=== PATIENT | female | born 1950 | race Caucasian/White ===

== ENCOUNTER 2021-12-10 19:52 | Emergency (ER) | payer MEDICARE, SELFPAY ==
--- NOTE | ~2021-12-10 | XR_ITS ---
EXAMINATION: XR CHEST CLINICAL INFORMATION: Weakness. COMPARISON: Chest x-ray 12/10/2021 TECHNIQUE: Frontal portable view of the chest was obtained. 8:36 PM FINDINGS: Low lung volume with asymmetric elevation of left diaphragm. Linear atelectasis at left lung base. Right lung normally aerated. No pulmonary vascular congestion. Cardiac mediastinal contours are normal. Heart size is normal. Multilevel degenerative spondylosis spine. Marked degenerative change of the left glenohumeral joint. Chronic deformity of the proximal left humerus likely related to prior trauma. XR/XR chest 1V IMPRESSION: Asymmetric elevation of left diaphragm with left basilar atelectasis. Low lung volume.
[2021-12-10 19:57] VITALS: BP 81/53; BP 85/37; PULSE 74; PULSE 78; RESP 18; TEMP 36.8; O2SAT 100; O2SAT 95; BMI 30.2
--- NOTE | 2021-12-10 20:12 | PC.NURSE ---
POC 273
--- NOTE | 2021-12-10 20:21 | ECG_ITS ---
Test Reason : WEAKNESS Blood Pressure : / mmHG Vent. Rate : 073 BPM Atrial Rate : 073 BPM P-R Int : 146 ms QRS Dur : 102 ms QT Int : 426 ms P-R-T Axes : 043 027 162 degrees QTc Int : 469 ms Normal sinus rhythm Minimal voltage criteria for LVH, may be normal variant ( Pete product ) Cannot rule out Inferior infarct , age undetermined ST & T wave abnormality, consider lateral ischemia Abnormal ECG When compared with ECG of 18-APR-2017 11:19, Non-specific change in ST segment in Inferior leads Nonspecific T wave abnormality now evident in Inferior leads T wave inversion now evident in Anterolateral leads Referred By: Cuauhtemoc Clancy Electronically Signed By:JOHN AVALOS MD
--- NOTE | 2021-12-10 20:29 | ED_ITS ---
HPI - Weakness General Chief complaint: Weakness Stated complaint: hyperglycemia Time Seen by Provider: 12/10/21 20:19 Source: patient Mode of arrival: EMS Limitations: no limitations History of Present Illness HPI Narrative: 71-year-old patient who has a history of CKD stage IV with creatinine 1.6-2.2 and recurrent hyperkalemia followed by Dr. Lan as well as underlying type 2 diabetes, COPD on home oxygen, recent NSTEMI in 08/20 with three-vessel CAD by cath?stenting to LAD and RCA x2, HFpEF, chronic anemia, depression, gout, obesity, hypertension, and hyperlipidemia came to the ER for feeling very weak for last 2-3 days with poor in oral intake complaining of running nose body aches headaches darker urine blood pressure on arrival was 85/37 received 600 cc of bolus by EMS blood sugar was about 260 patient id any abdominal pain no nausea no vomiting no fever no chills no cough or significant shortness of breath Patient frequently goes to [facility] was admitted on 11/21 and again on 11/29 discharged on 12/02 with CHF and weakness and hyperglycemia Related Data Allergies Allergy/AdvReac Type Severity Reaction Status Date / Time drospirenone [Vestura (28)] Allergy Unknown Verified 05/29/16 00:00 ethinyl estradiol Allergy Unknown Verified 05/29/16 00:00 [Vestura (28)] lisinopril [From ZESTRIL] Allergy Unknown THROAT Unverified 03/15/20 14:47 ITCHING Review of Systems Review of Systems: Yes all other systems are reviewed and are negative [facility] Social History Social History Advance Directives: No Advance Directives Information Provided: No Physical Exam Vital Signs: Vital Signs: Last Vital Signs Temp 98.1 F 12/10/21 21:59 Pulse 73 12/10/21 21:59 Resp 16 12/10/21 21:59 BP 98/45 L 12/10/21 21:59 Pulse Ox 99 12/10/21 21:59 O2 Del Method 12/10/21 21:59 O2 Flow Rate 94 12/10/21 21:59 Oxygen Flow Rate 3 12/10/21 19:57 BMI result Body Mass Index 30.2 Appearance: Alert. Oriented X3. No acute distress. Eyes: PERRLA, No Nystagmus ENT: Pharynx normal. Oral Mucosa dry Neck: Normal inspection. Neck supple. CVS: Normal heart rate and rhythm. Pulses normal. Respiratory: No respiratory distress. Equal air entry bilateral, no wheezing/rales/rhonchi Abdomen: Soft and nontender. Bowel sounds are present, no mass palpable, no CVA tenderness Skin: Skin warm and dry. Normal skin color. Normal skin turgor. Extremities: No lower extremity edema. No calf tenderness Neuro: Oriented X 3. No motor deficit. No sensory deficit.No cerebellar signs , cranial nerves II-XII intact MDM - Weakness MDM Narrative Medical decision making narrative: 71-year-old patient who has a history of CKD stage IV with creatinine 1.6-2.2 and recurrent hyperkalemia followed by Dr. Lan as well as underlying type 2 diabetes, COPD on home oxygen, recent NSTEMI in 08/20 with three-vessel CAD by cath?stenting to LAD and RCA x2, HFpEF, chronic anemia, depression, gout, obesity, hypertension, and hyperlipidemia came here for nonspecific weakness noticed to have blood sugar of 273 labs are stable will discharge patient home advised to follow with PCP patient received 2 L of IV fluid Medical Records Attestation: I reviewed the patient's medical records. Medical records narrative: Medical records reviewed from [facility] patient BUN creatinine was 48/2.9 on 12/02 and is in the same range in the past Lab Data Attestation: I reviewed the patient's lab results. Result diagrams: 12/10/21 20:33 12/10/21 20:33 Labs: Lab Results 12/10/21 12/10/21 12/10/21 Range/Units 20:12 20:33 20:33 WBC 8.8 (4.8-10.8) X10*3/uL RBC 3.38 L (4.20-5.50) X10*6/uL Hgb 9.5 L (12.0-16.0) g/dl Hct 29.3 L (37.0-47.0) % MCV 86.7 (80.0-98.0) fL MCH 28.1 (27.0-33.0) pg MCHC 32.4 (31.0-35.0) g/dl RDW 17.3 H (11.0-16.0) % Plt Count 152 L (160-400) X10*3/uL MPV 10.3 (9.4-12.3) fL Immature Gran % (Auto) 0.3 (0.0-0.4) % Neut % (Auto) 57.8 (45-73) % Lymph % (Auto) 31.8 (20-40) % Bertie % (Auto) 8.3 (2-11) % Eos % (Auto) 1.5 (0-4) % Baso % (Auto) 0.3 (0-2) % Lymph # (Auto) 2.8 (1.2-4.9) X10*3/uL Bertie # (Auto) 0.7 (0.1-1.2) X10*3/uL Eos # (Auto) 0.1 (0.0-0.4) X10*3/uL Baso # (Auto) 0.0 (0.0-0.2) X10*3/uL Abs Immat Gran (auto) 0.03 (0.00-0.03) X10*3/uL Absolute Neuts (auto) 5.1 (2.0-8.3) x10*3/uL Absolute Nucleated RBC 0.000 (0.0-0.012) X10*3/uL Nucleated RBC % (auto) 0.0 (0.0-0.2) /100WBC Sodium (135-145) mmol/L Potassium (3.3-5.1) mmol/L Chloride (96-108) mmol/L Carbon Dioxide (22-29) mmol/L Anion Gap (12-20) BUN (9-16) mg/dL Creatinine (0.5-1.4) mg/dL Estim Creat Clear Calc Estimated GFR POC Glucose 273 H (60-115) mg/dL Random Glucose (60-115) mg/dL Calcium (8.4-10.2) mg/dL Total Bilirubin (0.0-1.0) mg/dL AST (5-31) U/L ALT (0-31) U/L Alkaline Phosphatase (39-117) U/L Total Protein (6.5-8.0) g/dL Albumin (3.5-5.0) g/dL COVID-19 (BRODERICK) Negative (Negative) COVID-19 Clin Com See Note Influenza Type A (EDILSON) (Negative) Influenza Type B (EDILSON) (Negative) Influenza A & B Note 12/10/21 12/10/21 Range/Units 20:33 20:33 WBC (4.8-10.8) X10*3/uL RBC (4.20-5.50) X10*6/uL Hgb (12.0-16.0) g/dl Hct (37.0-47.0) % MCV (80.0-98.0) fL MCH (27.0-33.0) pg MCHC (31.0-35.0) g/dl RDW (11.0-16.0) % Plt Count (160-400) X10*3/uL MPV (9.4-12.3) fL Immature Gran % (Auto) (0.0-0.4) % Neut % (Auto) (45-73) % Lymph % (Auto) (20-40) % Bertie % (Auto) (2-11) % Eos % (Auto) (0-4) % Baso % (Auto) (0-2) % Lymph # (Auto) (1.2-4.9) X10*3/uL Bertie # (Auto) (0.1-1.2) X10*3/uL Eos # (Auto) (0.0-0.4) X10*3/uL Baso # (Auto) (0.0-0.2) X10*3/uL Abs Immat Gran (auto) (0.00-0.03) X10*3/uL Absolute Neuts (auto) (2.0-8.3) x10*3/uL Absolute Nucleated RBC (0.0-0.012) X10*3/uL Nucleated RBC % (auto) (0.0-0.2) /100WBC Sodium 136 (135-145) mmol/L Potassium 3.7 (3.3-5.1) mmol/L Chloride 107 (96-108) mmol/L Carbon Dioxide 21 L (22-29) mmol/L Anion Gap 12 (12-20) BUN 48 H (9-16) mg/dL Creatinine 2.32 H (0.5-1.4) mg/dL Estim Creat Clear Calc 20.4 Estimated GFR 21 POC Glucose (60-115) mg/dL Random Glucose 307 H (60-115) mg/dL Calcium 8.1 L (8.4-10.2) mg/dL Total Bilirubin 0.2 (0.0-1.0) mg/dL AST 10 (5-31) U/L ALT 7 (0-31) U/L Alkaline Phosphatase 64 (39-117) U/L Total Protein 4.7 L (6.5-8.0) g/dL Albumin 2.7 L (3.5-5.0) g/dL COVID-19 (BRODERICK) (Negative) COVID-19 Clin Com Influenza Type A (EDILSON) Negative (Negative) Influenza Type B (EDILSON) Negative (Negative) Influenza A & B Note See Note Discharge Plan Discharge Clinical Impression: Weakness, Chronic kidney failure, Hyperglycemia due to diabetes mellitus Patient Disposition: Home, Self-Care Instructions: Chronic Kidney Disease (ED), Weakness (ED), Diabetic Hyperglyc emia (ED) Additional Instructions: Drink plenty of fluids Take her insulin on time as prescribed follow with PCP
[2021-12-10 20:38] LABS: MANUAL DIFF FLAG NO
[2021-12-10 20:39] LABS: Basophils Percent Auto 0.3 % (0-2); Eosinophils Absolute Auto 0.1 X10*3/uL (0.0-0.4); Eosinophils Percent Auto 1.5 % (0-4); Hematocrit 29.3 % (37.0-47.0); Hemoglobin 9.5 g/dl (12.0-16.0); Imm Gran Abs Auto 0.03 X10*3/uL (0.00-0.03); Imm Gran Pct Auto 0.3 % (0.0-0.4); Lymphocytes Absolute Auto 2.8 X10*3/uL (1.2-4.9); Lymphocytes Percent Auto 31.8 % (20-40); Mean Corpuscular HGB Conc 32.4 g/dl (31.0-35.0); Mean Corpuscular Hemoglobin 28.1 pg (27.0-33.0); Mean Corpuscular Volume 86.7 fL (80.0-98.0); Mean Platelet Volume 10.3 fL (9.4-12.3); Monocytes Absolute Auto 0.7 X10*3/uL (0.1-1.2); Monocytes Percent Auto 8.3 % (2-11); Neutrophils Absolute Auto 5.1 x10*3/uL (2.0-8.3); Neutrophils Percent Auto 57.8 % (45-73); Platelet Count 152 X10*3/uL (160-400); Red Blood Count 3.38 X10*6/uL (4.20-5.50); Red Cell Distribution Width 17.3 % (11.0-16.0); White Blood Count 8.8 X10*3/uL (4.8-10.8)
[2021-12-10 20:57] LABS: COVID-19 Test Negative (Negative); IDNOW Serial# 16C4AD1C; IDNOW Serial# 55D5AD1C; Influenza A Negative (Negative); Influenza B2 Negative (Negative)
[2021-12-10 20:59] LABS: Alanine Aminotransferase 7 U/L (0-31); Albumin Level 2.7 g/dL (3.5-5.0); Alkaline Phosphatase 64 U/L (39-117); Anion Gap 12 (12-20); Aspartate Amino Transferase 10 U/L (5-31); Bilirubin Total 0.2 mg/dL (0.0-1.0); Blood Urea Nitrogen 48 mg/dL (9-16); Calcium 8.1 mg/dL (8.4-10.2); Carbon Dioxide 21 mmol/L (22-29); Chloride 107 mmol/L (96-108); Creatinine Clr Calc Pharmacy 20.4; Estimated Glomerular Filt Rate 21; Glucose Random 307 mg/dL (60-115); Potassium 3.7 mmol/L (3.3-5.1); Sodium 136 mmol/L (135-145); Total Protein 4.7 g/dL (6.5-8.0)
[2021-12-10 21:59] VITALS: BP 98/45; PULSE 73; RESP 16; TEMP 36.7; O2SAT 99
[2021-12-10] MEDS: 0.9 % Sodium Chloride 1,000 ML 999 ML IV ×2 (22:03→22:04)
[2021-12-10 22:07] LABS: Glucose, Whole Blood 273 mg/dL (60-115)
[2021-12-11] MEDS: Insulin Glargine,Hum.rec.anlog 100 UNIT/ML 10 ML VIAL 15 UNIT SUBCUT (01:14)
== END 2021-12-11 01:35 | disposition home or self-care (01) ==
PROVIDERS: Emergency Provider Internal Medicine; PCP Internal Medicine
DX: R53.1 Weakness (principal); E11.65 Type 2 diabetes mellitus with hyperglycemia; E11.22 Type 2 diabetes mellitus with diabetic chronic kidney disease; I13.0 Hypertensive heart and chronic kidney disease with heart failure and stage 1 through stage 4 chronic kidney disease, or unspecified chronic kidney disease; N18.4 Chronic kidney disease, stage 4 (severe); I50.9 Heart failure, unspecified; Z20.822 Contact with and (suspected) exposure to COVID-19; J44.9 Chronic obstructive pulmonary disease, unspecified; Z99.81 Dependence on supplemental oxygen; E78.5 Hyperlipidemia, unspecified
CPT/HCPCS: 71045; 80053; 82947; 85025; 87502; 87635; 93005; 96360; 96361; 99283; 99284

== ENCOUNTER 2022-03-19 19:47 | Emergency (ER) | payer MEDICARE, SELFPAY ==
--- NOTE | ~2022-03-19 | XR_ITS ---
EXAMINATION: XR CHEST CLINICAL INFORMATION: Shortness of breath COMPARISON: 12/10/2021 TECHNIQUE: Frontal view of the chest was obtained. FINDINGS: Elevated left hemidiaphragm. There are bilateral airspace opacities with perihilar distribution. No pleural effusion or pneumothorax. The cardiomediastinal silhouette is unchanged, with a calcified aorta. Degenerative changes at the left shoulder with chronic humeral deformity noted. XR/XR chest 1V IMPRESSION: Bilateral perihilar airspace opacities. Considerations include edema versus infectious/inflammatory process.
--- NOTE | ~2022-03-19 | CT_ITS ---
EXAMINATION: CT ABDOMEN AND PELVIS WITHOUT CONTRAST CLINICAL INFORMATION: Abdominal pain COMPARISON: CT abdomen pelvis 09/15/2015 TECHNIQUE: Multidetector volumetric imaging was performed from the superior aspect of the liver through the pubic symphysis. Sagittal and coronal reformatted images were obtained on the technologist's workstation. This CT examination was performed using dose optimization techniques as appropriate, variously including the following: *Automated exposure control *Adjustment of mA and/or kV according to patient size (this includes techniques or standardized protocols for targeted exams where dose is matched to indication/reason for exam; i.e. extremities or head) *Use of iterative reconstruction technique DLP: 647 mGy-cm FINDINGS: LUNG BASES: New left lower lobe atelectasis/consolidation is present. There is new elevation of the left hemidiaphragm LIVER, GALLBLADDER, AND BILIARY TREE: The liver is normal in size, shape, and attenuation. In 2016, hepatic steatosis was present which is no longer noted. No focal hepatic lesion or biliary ductal dilatation is present. There are dependent calcifications in the gallbladder consistent with calculi. There is one nondependent calcification which could be a small area of calcification. No obvious pericholecystic inflammatory changes. PANCREAS: Unremarkable. SPLEEN: Unremarkable. ADRENAL GLANDS: Unremarkable. KIDNEYS AND URETERS: The kidneys are normal in size, shape, and attenuation. No hydronephrosis, hydroureter, or calculi seen. Calcifications present in the kidney are felt to be renovascular. No perinephric stranding. BLADDER: Unremarkable. GASTROINTESTINAL TRACT: Diverticular changes are present in the left colon without diverticulitis. The small and large bowel are otherwise unremarkable. The appendix is unremarkable. ABDOMINAL WALL: No significant hernia is appreciated. LYMPH NODES: No retroperitoneal lymphadenopathy. VASCULAR: Marked aortoiliofemoral calcifications are seen with significant peripheral vascular disease present PELVIC VISCERA: Unremarkable. OSSEOUS STRUCTURES: Scoliosis is present along with degenerative changes throughout the spine. CT/CT abdomen pelvis wo IV con IMPRESSION: * New left lower lobe atelectasis/consolidation. * Cholelithiasis without evidence of cholecystitis along with one area of nondependent calcification. * Colonic diverticulosis without diverticulitis. * Significant peripheral vascular disease most likely present Fleischner guidelines were followed.
--- NOTE | ~2022-03-19 | CT_ITS ---
EXAMINATION: CT head/brain wo IV con CLINICAL INFORMATION: Reason for Exam LLQ pain - HIGH BP, NAUSEA COMPARISON: CT head without contrast 04/18/2017 TECHNIQUE: Contiguous axial imaging was performed from the skull base to vertex without intravenous contrast. Sagittal and coronal reformatted images were obtained. This CT examination was performed using dose optimization techniques as appropriate, variously including the following: * Automated exposure control * Adjustment of mA and/or kV according to patient size (this includes techniques or standardized protocols for targeted exams where dose is matched to indication/reason for exam; i.e. extremities or head) Use of iterative reconstruction technique DLP: 623 mGy-cm FINDINGS: No acute osseous or soft tissue abnormality. Small left frontal calvarial outer table osteoma. Scattered trace paranasal sinus mucosal thickening. The mastoids are clear. There is no evidence of acute intracranial hemorrhage or territorial infarction. No abnormal mass effect or midline shift is seen. Ritter to white matter differentiation is well preserved. No extra-axial fluid collections are identified. No hydrocephalus. Proportional prominence of the ventricles and sulcal spaces is consistent with mild volume loss. There is no abnormal attenuation within the brain parenchyma. CT/CT head/brain wo IV con IMPRESSION: No acute intracranial abnormality including hemorrhage, mass effect, hydrocephalus, or acute territorial edematous infarction.
[2022-03-19 20:04] VITALS: BP 130/80; PULSE 91; RESP 16; O2SAT 95; BMI 30.2
[2022-03-19 20:36] LABS: MANUAL DIFF FLAG NO
--- NOTE | 2022-03-19 20:38 | ED_ITS ---
HPI - Abdominal Pain General Chief Complaint: Abdominal Pain Stated Complaint: abdominal pain Time Seen by Provider: 03/19/22 20:07 Source: patient and EMS Mode of arrival: EMS Limitations: other (patient slow to respond to questions and poor historian ) History of Present Illness HPI narrative: 72-year-old female who presents with upper abdominal pain x1 week. The patient reports that she has been having epigastric pain and nausea for the past week. She has also been eating less secondary to the pain but has been able to tolerate food and water. She tells me that she has also been constipated for the past month. She reports that she has been able to move her bowels but less frequently than normal. She denies any fevers, chills, vomiting, headache, dizziness, chest pain, or shortness of breath. Of note, triage note states patient had been diverticulitis at [facility] recently, patient denies this upon being asked, however, patient is somewhat of a poor historian. Related Data Previous Rx's Medication Instructions Recorded azithromycin 250 mg tablet See Rx Instructions PO .COMPLEX #6 03/20/22 tabs docusate sodium 100 mg capsule 100 mg PO BID #20 caps 03/20/22 (Colace) sennosides 8.6 mg tablet (senna) 8.6 mg PO BEDTIME #14 tabs 03/20/22 Allergies Allergy/AdvReac Type Severity Reaction Status Date / Time drospirenone [Vestura (28)] Allergy Unknown Verified 05/29/16 00:00 ethinyl estradiol Allergy Unknown Verified 05/29/16 00:00 [Vestura (28)] lisinopril [From ZESTRIL] Allergy Unknown THROAT Unverified 03/15/20 14:47 ITCHING Review of Systems Review of Systems Constitutional : No Weight loss, No Fever, No Chills, No Fatigue, No Malaise ENT/Mouth : No sore throat, No Rhinorrhea Eyes: No Eye Pain, No Swelling, No Redness Cardiovascular : No Chest Pain, No SOB, No Dyspnea on Exertion, No Orthopnea, No Edema, No Palpitations Respiratory : No Cough, No Sputum, No Wheezing Gastrointestinal : No Nausea, No Vomiting, No Diarrhea, + Constipation, + abdominal Pain, No Hematochezia, No Melena Genitourinary : No Dysuria, No Urinary Frequency, No Hematuria, Musculoskeletal : No joint pain, No Myalgias, No Joint Swelling Skin : No Skin Lesions, No rash Neuro : No Weakness, No Numbness, No Dizziness, No Headache All other systems reviewed and are negative Yes all other systems are reviewed and are negative [facility] Past Medical History Attestation statement: The following information was validated with the patient. Source: unable to obtain and obtained from family Social History Social History Alcohol intake: never Patient Tobacco Use Status: Never used Tobacco Use of substances other than those prescribed or required for medical reasons: No Advance Directives: No Advance Directives Information Provided: No Physical Exam ED Vital Signs: Vital Signs - 24 hr 03/19/22 20:04 03/19/22 23:40 Temperature 97.1 F Pulse Rate 91 89 Respiratory Rate 16 14 Blood Pressure 130/80 167/72 H Pulse Oximetry 95 94 Oxygen Delivery Method Room Air Room Air BMI result Body Mass Index 30.2 VSS Appearance: Alert.? Oriented X3.? No acute distress.?Slow w/ responses and poor historian Head: Normocephalic, atraumatic, no step-offs or deformities Eyes: Pupils equal, round and reactive to light. Neck: Normal inspection.? Neck supple.? CVS: Normal heart rate and rhythm.? Pulses normal.? Respiratory: No respiratory distress.? Breath sounds normal.? Abdomen: Soft, non-distended, mild tenderness to palpation of the epigastric region. +BS.?Negative Hicks's sign, Mcburney's point tenderness, Rovsing sign, rebound tenderness. Skin: Skin warm and dry.? Normal skin color.? Normal skin turgor.? Extremities: No lower extremity edema.? No calf ttp. 5/5 strength to bilateral upper and lower extremities Neuro: Oriented X 3.? No motor deficit.? No sensory deficit. Patient ambulating w/ steady gait. Course Reevaluation(s) Reevaluation #1: CBC and chemistry appear to be at patient's baseline. COVID negative. CT/CT abdomen pelvis shows: new left lower lobe atelectasis/consolidation, cholelithiasis without evidence of cholecystitis, colonic diverticulosis without diverticulitis. Patient currently resting comfortably, sleeping. ? Time: 22:53 Reevaluation #2: Patient's chest x-ray shows bilateral airspace opacities concerning for possible edema vs. pneumonia patients O2 94-95% even after exertion and ambulation. On re-evaluation, patient denies cough, shortness of breath, chest pain. Also reports that she no longer has abdominal pain at this time and reports feeling well. Will discharge patient on antibiotics for possible pneumonia as patient poor historian. Patient hemodynamically stable. Feel comfortable with discharge at this time. Patient in agreement with plan. at discharge patient feeling well, ambulating with steady gait, telling me she is pain free, tolerating p.o. fluids and food. Comfortable discharge home. Time: 23:53 MDM - Abdominal Pain MDM Narrative Medical decision making narrative: 20:40 72 y/o F presenting with abdominal pain x 1 week and constipation x 1 month. Also reporting nausea, no vomiting. PE remarkable for mild epigastric tenderness. No signs of acute abdomen, soft, nondistended. Afebrile. Suspect gastritis vs. diverticulitis vs billiary colic. Less likely cholecystitis vs acute abdominal process. Patient slow to respond uncertain if this is her baseline, also reprots HTN at home CT of head ordered [facility]. patient not complaining of chest pain or shortness of breath unlikely ACS or PE. Plan to obtain basic labs, CT abdomen, CT of head . Medical Records Attestation: I reviewed the patient's medical records. Lab Data Attestation: I reviewed the patient's lab results. Result diagrams: 03/19/22 20:31 03/19/22 21:53 Labs: Lab Results 03/19/22 03/19/22 03/19/22 Range/Units 20:31 20:31 21:53 WBC 8.3 (4.8-10.8) X10*3/uL RBC 3.97 L (4.20-5.50) X10*6/uL Hgb 11.5 L D (12.0-16.0) g/dl Hct 35.3 L D (37.0-47.0) % MCV 88.9 (80.0-98.0) fL MCH 29.0 (27.0-33.0) pg MCHC 32.6 (31.0-35.0) g/dl RDW 15.9 (11.0-16.0) % Plt Count 226 D (160-400) X10*3/uL MPV 10.8 (9.4-12.3) fL Immature Gran % (Auto) 0.4 (0.0-0.4) % Neut % (Auto) 62.0 (45-73) % Lymph % (Auto) 28.4 (20-40) % [place] % (Auto) 6.4 (2-11) % Eos % (Auto) 2.3 (0-4) % Baso % (Auto) 0.5 (0-2) % Lymph # (Auto) 2.4 (1.2-4.9) X10*3/uL [place] # (Auto) 0.5 (0.1-1.2) X10*3/uL Eos # (Auto) 0.2 (0.0-0.4) X10*3/uL Baso # (Auto) 0.0 (0.0-0.2) X10*3/uL Abs Immat Gran (auto) 0.03 (0.00-0.03) X10*3/uL Absolute Neuts (auto) 5.2 (2.0-8.3) x10*3/uL Absolute Nucleated RBC 0.000 (0.0-0.012) X10*3/uL Nucleated RBC % (auto) 0.0 (0.0-0.2) /100WBC Sodium 139 (135-145) mmol/L Potassium 4.7 D (3.3-5.1) mmol/L Chloride 106 (96-108) mmol/L Carbon Dioxide 22 (22-29) mmol/L Anion Gap 16 (12-20) BUN 45 H (9-16) mg/dL Creatinine 2.43 H (0.5-1.4) mg/dL Estim Creat Clear Calc 19.2 Estimated GFR 19 Random Glucose 218 H (60-115) mg/dL Calcium 7.9 L (8.4-10.2) mg/dL Magnesium 2.2 (1.6-2.6) mg/dL Total Bilirubin 0.2 (0.0-1.0) mg/dL AST 13 (5-31) U/L ALT 9 (0-31) U/L Alkaline Phosphatase 91 D (39-117) U/L Total Protein 4.8 L (6.5-8.0) g/dL Albumin 2.6 L (3.5-5.0) g/dL Lipase 24 (8-78) U/L Urine Color Urine Appearance Urine pH (5.0-9.0) Ur Specific Mobile (1.005-1.025) Urine Protein (Neg-Trace) mg/dL Urine Glucose (UA) (Negative) mg/dL Urine Ketones (Negative) mg/dL Urine Blood (Negative) Urine Nitrite (Negative) Ur Leukocyte Esterase (Negative) COVID-19 (BRODERICK) Negative (Negative) COVID-19 Clin Com See Note 03/19/22 Range/Units 23:56 WBC (4.8-10.8) X10*3/uL RBC (4.20-5.50) X10*6/uL Hgb (12.0-16.0) g/dl Hct (37.0-47.0) % MCV (80.0-98.0) fL MCH (27.0-33.0) pg MCHC (31.0-35.0) g/dl RDW (11.0-16.0) % Plt Count (160-400) X10*3/uL MPV (9.4-12.3) fL Immature Gran % (Auto) (0.0-0.4) % Neut % (Auto) (45-73) % Lymph % (Auto) (20-40) % [place] % (Auto) (2-11) % Eos % (Auto) (0-4) % Baso % (Auto) (0-2) % Lymph # (Auto) (1.2-4.9) X10*3/uL [place] # (Auto) (0.1-1.2) X10*3/uL Eos # (Auto) (0.0-0.4) X10*3/uL Baso # (Auto) (0.0-0.2) X10*3/uL Abs Immat Gran (auto) (0.00-0.03) X10*3/uL Absolute Neuts (auto) (2.0-8.3) x10*3/uL Absolute Nucleated RBC (0.0-0.012) X10*3/uL Nucleated RBC % (auto) (0.0-0.2) /100WBC Sodium (135-145) mmol/L Potassium (3.3-5.1) mmol/L Chloride (96-108) mmol/L Carbon Dioxide (22-29) mmol/L Anion Gap (12-20) BUN (9-16) mg/dL Creatinine (0.5-1.4) mg/dL Estim Creat Clear Calc Estimated GFR Random Glucose (60-115) mg/dL Calcium (8.4-10.2) mg/dL Magnesium (1.6-2.6) mg/dL Total Bilirubin (0.0-1.0) mg/dL AST (5-31) U/L ALT (0-31) U/L Alkaline Phosphatase (39-117) U/L Total Protein (6.5-8.0) g/dL Albumin (3.5-5.0) g/dL Lipase (8-78) U/L Urine Color Yellow Urine Appearance Cloudy Urine pH 6.0 (5.0-9.0) Ur Specific Mobile 1.020 (1.005-1.025) Urine Protein >=1000 (4+) H (Neg-Trace) mg/dL Urine Glucose (UA) 500 H (Negative) mg/dL Urine Ketones Trace (Negative) mg/dL Urine Blood Trace H (Negative) Urine Nitrite Negative (Negative) Ur Leukocyte Esterase Negative (Negative) COVID-19 (BRODERICK) (Negative) COVID-19 Clin Com Critical Care Time Critical Care Time Critical Care Time: No Discharge Plan Discharge Clinical Impression: Abdominal pain, Pneumonia Patient Disposition: Home, Self-Care Instructions: Abdominal Pain (ED), Pneumonia (ED) Additional Instructions: Take your medications as prescribed. If you were prescribed antibiotics today, it is important that you take your medication to their entirety, do not skip any doses, do not finish them early. Follow-up with your primary care provider this week. Return to the emergency department with new or worsening symptoms. Such as fevers, chills, chest pain, shortness of breath, nausea, vomiting, dizziness, headache, vision changes, lethargy In case of emergency call 911 Prescriptions: New azithromycin 250 mg tablet See Rx Instructions .ROUTE .COMPLEX Qty: 6 0RF Rx Instructions: For 250 mg dose pack: take 500 mg today (day 1), then 250 mg for 4 days (days 2-5) docusate sodium [Colace] 100 mg capsule 100 mg PO BID Qty: 20 0RF sennosides [senna] 8.6 mg tablet 8.6 mg PO BEDTIME Qty: 14 0RF Referrals: Marilu Quinteros MD [Primary Care Provider] - 2 days
[2022-03-19 20:39] LABS: Basophils Percent Auto 0.5 % (0-2); Eosinophils Absolute Auto 0.2 X10*3/uL (0.0-0.4); Eosinophils Percent Auto 2.3 % (0-4); Hematocrit 35.3 % (37.0-47.0); Hemoglobin 11.5 g/dl (12.0-16.0); Imm Gran Abs Auto 0.03 X10*3/uL (0.00-0.03); Imm Gran Pct Auto 0.4 % (0.0-0.4); Lymphocytes Absolute Auto 2.4 X10*3/uL (1.2-4.9); Lymphocytes Percent Auto 28.4 % (20-40); Mean Corpuscular HGB Conc 32.6 g/dl (31.0-35.0); Mean Corpuscular Volume 88.9 fL (80.0-98.0); Mean Platelet Volume 10.8 fL (9.4-12.3); Monocytes Absolute Auto 0.5 X10*3/uL (0.1-1.2); Monocytes Percent Auto 6.4 % (2-11); Neutrophils Absolute Auto 5.2 x10*3/uL (2.0-8.3); Platelet Count 226 X10*3/uL (160-400); Red Blood Count 3.97 X10*6/uL (4.20-5.50); Red Cell Distribution Width 15.9 % (11.0-16.0); White Blood Count 8.3 X10*3/uL (4.8-10.8)
[2022-03-19 21:02] LABS: COVID-19 Test Negative (Negative); IDNOW Serial# 55D5AD1C
[2022-03-19 22:27] LABS: Alanine Aminotransferase 9 U/L (0-31); Albumin Level 2.6 g/dL (3.5-5.0); Alkaline Phosphatase 91 U/L (39-117); Anion Gap 16 (12-20); Aspartate Amino Transferase 13 U/L (5-31); Bilirubin Total 0.2 mg/dL (0.0-1.0); Blood Urea Nitrogen 45 mg/dL (9-16); Calcium 7.9 mg/dL (8.4-10.2); Carbon Dioxide 22 mmol/L (22-29); Chloride 106 mmol/L (96-108); Creatinine Clr Calc Pharmacy 19.2; Estimated Glomerular Filt Rate 19; Glucose Random 218 mg/dL (60-115); Lipase 24 U/L (8-78); Magnesium 2.2 mg/dL (1.6-2.6); Potassium 4.7 mmol/L (3.3-5.1); Sodium 139 mmol/L (135-145); Total Protein 4.8 g/dL (6.5-8.0)
[2022-03-19] MEDS: 0.9 % Sodium Chloride 1,000 ML 999 ML IV (23:17)
[2022-03-19 23:40] VITALS: BP 167/72; PULSE 89; RESP 14; TEMP 36.2; O2SAT 94
[2022-03-20 00:02] LABS: Appearance Urine Cloudy; Color Urine Yellow; Glucose Urine UA 500 mg/dL (Negative); Leukocyte Esterase Urine Negative (Negative); Nitrite Urine Negative (Negative); UMIC TRIGGER UACC YES; Urine Blood Trace (Negative); Urine Ketones Trace mg/dL (Negative); Urine Protein >=1000 (4+) mg/dL (Neg-Trace)
[2022-03-20 00:15] LABS: Bacteria Urine None Seen (None Seen); Granular Casts Urine Present; UACC Culture Trigger YES
== END 2022-03-20 00:37 | disposition home or self-care (01) ==
PROVIDERS: Physician Assistant; Emergency Provider Emergency Medicine; PCP Internal Medicine
DX: R10.13 Epigastric pain (principal); J18.9 Pneumonia, unspecified organism; Z20.822 Contact with and (suspected) exposure to COVID-19
CPT/HCPCS: 70450; 71045; 74176; 80053; 81001; 81003; 83690; 83735; 85025; 87086; 87635; 99284

== ENCOUNTER 2022-07-30 12:41 | Inpatient (IN) | payer MEDICARE, SELFPAY ==
[2022-07-30] VITALS (7 sets, daily range): BP systolic 145–200; BP diastolic 79–91; PULSE 80–99; RESP 15–20; TEMP 36.4–36.8; O2SAT 95–98; BMI 29.5; BMI 29.2
--- NOTE | ~2022-07-30 | CT_ITS ---
EXAMINATION: CT HEAD WITHOUT CONTRAST CLINICAL INFORMATION: Left mild droop. COMPARISON: Head CT scan dated 03/19/2022. TECHNIQUE: Contiguous axial imaging was performed from the skull base to vertex without intravenous administration of contrast. Coronal and sagittal reformatted images were obtained. This CT examination was performed using dose optimization techniques as appropriate, variously including the following: *Automated exposure control *Adjustment of mA and/or kV according to patient size (this includes techniques or standardized protocols for targeted exams where dose is matched to indication/reason for exam; i.e. extremities or head) *Use of iterative reconstruction technique DLP: 653 mGy-cm FINDINGS: There is mild widening of the cortical sulci and associated ventriculomegaly. The lateral ventricles are symmetrical. The third and fourth ventricles are in their normal midline position. The basilar and prepontine cisterns are unremarkable. A lacunar infarct is seen in the left basal ganglia. There is no mass effect or midline shift. Sections through the bony calvarium are unremarkable. The orbits are intact. The paranasal sinuses are clear. The mastoid air cells are clear. CT/CT head/brain wo IV con IMPRESSION: Left basal ganglia infarct is of indeterminate age, but was not seen on the most recent study from 03/19/2022. No other significant abnormality.
--- NOTE | ~2022-07-30 | XR_ITS ---
EXAMINATION: XR CHEST CLINICAL INFORMATION: Cough. COMPARISON: Chest radiograph 03/19/2022. TECHNIQUE: Frontal view of the chest was obtained. FINDINGS: Chronic asymmetric elevation of the left hemidiaphragm with platelike opacities in the left lower lobe, favoring to represent scarring or subsegmental atelectasis. Questionable new subtle focal airspace opacities in the right mid lung. Unchanged blunting of the left lateral costophrenic angle. No significant pleural effusion. No pneumothorax. Stable appearance of the cardiomediastinal silhouette. Decreased bone mineralization and multifocal osteoarthritis. Right lower rib fracture with signs of healing. XR/XR chest 1V IMPRESSION: 1. Questionable new focal airspace opacities in the right mid lung that could represent an early infiltrate. Recommend a follow-up examination after treatment to ensure resolution. 2. Chronic asymmetric elevation of the left hemidiaphragm with left basilar subsegmental atelectasis.
[2022-07-30 13:10] LABS: Glucose, Whole Blood 405 mg/dL (60-115)
[2022-07-30 14:33] LABS: MANUAL DIFF FLAG NO
[2022-07-30 14:56] LABS: Basophils Percent Auto 0.4 % (0-2); Eosinophils Absolute Auto 0.2 X10*3/uL (0.0-0.4); Hematocrit 29.4 % (37.0-47.0); Hemoglobin 9.6 g/dl (12.0-16.0); Imm Gran Abs Auto 0.06 X10*3/uL (0.00-0.03); Imm Gran Pct Auto 0.7 % (0.0-0.4); Lymphocytes Absolute Auto 2.5 X10*3/uL (1.2-4.9); Mean Corpuscular HGB Conc 32.7 g/dl (31.0-35.0); Mean Corpuscular Hemoglobin 29.2 pg (27.0-33.0); Mean Corpuscular Volume 89.4 fL (80.0-98.0); Mean Platelet Volume 11.6 fL (9.4-12.3); Monocytes Absolute Auto 0.5 X10*3/uL (0.1-1.2); Monocytes Percent Auto 5.5 % (2-11); Neutrophils Absolute Auto 5.9 x10*3/uL (2.0-8.3); Neutrophils Percent Auto 64.4 % (45-73); Platelet Count 200 X10*3/uL (160-400); Red Blood Count 3.29 X10*6/uL (4.20-5.50); Red Cell Distribution Width 14.1 % (11.0-16.0); White Blood Count 9.1 X10*3/uL (4.8-10.8)
[2022-07-30 16:36] LABS: Anion Gap 11 (12-20); Blood Urea Nitrogen 85 mg/dL (9-16); Calcium 8.4 mg/dL (8.4-10.2); Carbon Dioxide 22 mmol/L (22-29); Chloride 110 mmol/L (96-108); Creatinine Clr Calc Pharmacy 14.4; Estimated Glomerular Filt Rate 15; Glucose Random 357 mg/dL (60-115); Potassium 4.5 mmol/L (3.3-5.1); Sodium 138 mmol/L (135-145)
--- NOTE | 2022-07-30 16:43 | ECG_ITS ---
Test Reason : NEURO Blood Pressure : / mmHG Vent. Rate : 090 BPM Atrial Rate : 090 BPM P-R Int : 152 ms QRS Dur : 098 ms QT Int : 394 ms P-R-T Axes : 038 015 136 degrees QTc Int : 481 ms Normal sinus rhythm Minimal voltage criteria for LVH, may be normal variant ( [place] product ) Inferior infarct (cited on or before 10-DEC-2021) ST & T wave abnormality, consider lateral ischemia Abnormal ECG When compared with ECG of 10-DEC-2021 21:45, No significant change was found Referred By: Roxy Messer Electronically Signed By:Giovanni Kelley
--- NOTE | 2022-07-30 16:46 | ED_ITS ---
HPI - General Adult General Chief complaint: General Medical Stated complaint: High blood sugar per EMS Time Seen by Provider: 07/30/22 14:21 Source: patient Mode of arrival: EMS History of Present Illness HPI narrative: 72-year-old female is brought in by the ambulance today for findings of blood glucose greater than 600 this morning and also endorse min of a noted left corner mouth droop at midnight last night be for which the had called EMS but patient refused Hospital transport because she states that the symptoms resolved by the time that they arrived. Patient currently denies any shortness of breath, chest pain, GI or symptoms. Related Data Previous Rx's Medication Instructions Recorded azithromycin 250 mg tablet See Rx Instructions PO .COMPLEX #6 03/20/22 tabs docusate sodium 100 mg capsule 100 mg PO BID #20 caps 03/20/22 (Colace) sennosides 8.6 mg tablet (senna) 8.6 mg PO BEDTIME #14 tabs 03/20/22 Allergies Allergy/AdvReac Type Severity Reaction Status Date / Time drospirenone [Vestura (28)] Allergy Unknown Itching Verified 07/30/22 13:03 ethinyl estradiol Allergy Unknown Itching Verified 07/30/22 13:03 [Vestura (28)] lisinopril [From ZESTRIL] Allergy Unknown THROAT Verified 07/30/22 13:03 ITCHING Review of Systems Review of Systems: Pertinent positives and negatives as stated in HPI PMFSH Past Medical History Source: nursing notes reviewed Social History Social History Alcohol intake: former Patient Tobacco Use Status: Never used Tobacco Smoked in Last 30 Days: No Use of substances other than those prescribed or required for medical reasons: No Advance Directives: No Advance Directives Information Provided: Yes Physical Exam ED Vital Signs: Vital Signs - 24 hr 07/30/22 13:04 07/30/22 13:06 07/30/22 15:43 Temperature 98.2 F Pulse Rate 87 88 88 Respiratory Rate 18 20 18 Blood Pressure 145/81 H 145/81 H 196/91 H Pulse Oximetry 98 95 98 Oxygen Delivery Method Room Air Room Air Room Air 07/30/22 15:43 07/30/22 16:00 Temperature Pulse Rate 86 84 Respiratory Rate 16 18 Blood Pressure 196/91 H Pulse Oximetry 96 Oxygen Delivery Method Room Air Room Air BMI result Body Mass Index 29.5 VITAL SIGNS: Reviewed. GENERAL: Well developed, well nourished, in no acute distress. HEAD: Normocephalic/atraumatic EYES: PERRLA, EOMI EARS: Ext canals without abnormality OROPHARYNX: no oral lesions noted, posterior pharynx clear NECK: Supple, no adenopathy LUNGS: Normal breath sounds. No adventitious sounds or accessory muscle use. SpO2<98> CARDIOVASCULAR: Regular rate and rhythm without noted murmurs, no JVD or lower extremity edema. ABDOMEN: Soft, non-tender, non-distended with bowel sounds. MUSCULOSKELETAL: No tenderness, deformities, or effusions noted on gross inspection. EXTREMITIES: No cyanosis, clubbing or edema. SKIN: Inspection of the skin reveals no rashes NEUROLOGIC: Alert and oriented x 4. Strength and sensation to light touch were grossly intact x 4, there is a noted left corner mouth droop, no pronator drift, cranial nerves 2-12 were grossly intact. Medications Administered Generic Name Dose Route Start Last Admin Trade Name Freq PRN Reason Stop Dose Admin Sodium Chloride 500 mls @ 500 mls/hr 07/30/22 16:45 07/30/22 16:54 Ns IV 07/30/22 17:44 500 mls/hr .Q1H BRYSON Administration Discontinued Medications Generic Name Dose Route Start Last Admin Trade Name Freq PRN Reason Stop Dose Admin Insulin Human Lispro 5 unit 07/30/22 16:42 07/30/22 16:55 Insulin Lispro 100 Unit/Ml 3 Ml Vial SUBCUT 07/30/22 16:43 5 unit ONCE ONE Administration Medical Decision Making Medical Decision Making [facility] Narrative: 72-year-old female who has a history of COPD/diabetes and is noted be hyperglycemic without evidence to suggest DKA, she is an everyday smoker and denies any oxygen use. She currently denies any concerns. Patient received subcutaneous insulin. On review of all investigations my interpretation is that patient has acute on chronic renal failure with concomitant hyperglycemia without evidence of DKA otherwise hematology results appear to be chronically stable. Given patient's subacute neurologic findings she will be admitted as she has significant comorbidities and will need to be further evaluated. Differential Diagnosis Differential Diagnoses: The differential diagnosis associated with the presentation includes Please see the discussion above Consult Healthcare Provider Management of the patient was discussed with: Hospitalist Lab Data MDM Lab Attestation statement: I reviewed the patient's lab results. Please see the discussion above 07/30/22 14:27 07/30/22 14:27 Labs: Lab Results 07/30/22 07/30/22 07/30/22 Range/Units 13:05 14:27 14:27 WBC 9.1 (4.8-10.8) X10*3/uL RBC 3.29 L (4.20-5.50) X10*6/uL Hgb 9.6 L (12.0-16.0) g/dl Hct 29.4 L (37.0-47.0) % MCV 89.4 (80.0-98.0) fL MCH 29.2 (27.0-33.0) pg MCHC 32.7 (31.0-35.0) g/dl RDW 14.1 (11.0-16.0) % Plt Count 200 (160-400) X10*3/uL MPV 11.6 (9.4-12.3) fL Immature Gran % (Auto) 0.7 H (0.0-0.4) % Neut % (Auto) 64.4 (45-73) % Lymph % (Auto) 27.0 (20-40) % [place] % (Auto) 5.5 (2-11) % Eos % (Auto) 2.0 (0-4) % Baso % (Auto) 0.4 (0-2) % Lymph # (Auto) 2.5 (1.2-4.9) X10*3/uL [place] # (Auto) 0.5 (0.1-1.2) X10*3/uL Eos # (Auto) 0.2 (0.0-0.4) X10*3/uL Baso # (Auto) 0.0 (0.0-0.2) X10*3/uL Abs Immat Gran (auto) 0.06 H (0.00-0.03) X10*3/uL Absolute Neuts (auto) 5.9 (2.0-8.3) x10*3/uL Absolute Nucleated RBC 0.000 (0.0-0.012) X10*3/uL Nucleated RBC % (auto) 0.0 (0.0-0.2) /100WBC Sodium 138 (135-145) mmol/L Potassium 4.5 (3.3-5.1) mmol/L Chloride 110 H (96-108) mmol/L Carbon Dioxide 22 (22-29) mmol/L Anion Gap 11 L (12-20) BUN 85 H (9-16) mg/dL Creatinine 3.08 H (0.5-1.4) mg/dL Estim Creat Clear Calc 14.4 Estimated GFR 15 POC Glucose 405 H* (60-115) mg/dL Random Glucose 357 H* (60-115) mg/dL Calcium 8.4 D (8.4-10.2) mg/dL 07/30/22 Range/Units 16:53 WBC (4.8-10.8) X10*3/uL RBC (4.20-5.50) X10*6/uL Hgb (12.0-16.0) g/dl Hct (37.0-47.0) % MCV (80.0-98.0) fL MCH (27.0-33.0) pg MCHC (31.0-35.0) g/dl RDW (11.0-16.0) % Plt Count (160-400) X10*3/uL MPV (9.4-12.3) fL Immature Gran % (Auto) (0.0-0.4) % Neut % (Auto) (45-73) % Lymph % (Auto) (20-40) % [place] % (Auto) (2-11) % Eos % (Auto) (0-4) % Baso % (Auto) (0-2) % Lymph # (Auto) (1.2-4.9) X10*3/uL [place] # (Auto) (0.1-1.2) X10*3/uL Eos # (Auto) (0.0-0.4) X10*3/uL Baso # (Auto) (0.0-0.2) X10*3/uL Abs Immat Gran (auto) (0.00-0.03) X10*3/uL Absolute Neuts (auto) (2.0-8.3) x10*3/uL Absolute Nucleated RBC (0.0-0.012) X10*3/uL Nucleated RBC % (auto) (0.0-0.2) /100WBC Sodium (135-145) mmol/L Potassium (3.3-5.1) mmol/L Chloride (96-108) mmol/L Carbon Dioxide (22-29) mmol/L Anion Gap (12-20) BUN (9-16) mg/dL Creatinine (0.5-1.4) mg/dL Estim Creat Clear Calc Estimated GFR POC Glucose 312 H (60-115) mg/dL Random Glucose (60-115) mg/dL Calcium (8.4-10.2) mg/dL Independent Interpretation I performed an independent interpretation of an: EKG Interpretation: Normal sinus rhythm, HR -90, PA/QRS/QTC are within normal limits, I do note the ST and T-wave abnormalities however these appear to be chronically stable from prior EKG. External Record Review External record reviewed: Outpatient record and Prior outpatient labs Chronic Conditions Patient?s care impacted by: Diabetes and Hypertension Critical Care Time Critical Care Time Critical Care Time: Yes Total Critical Care Time: 30 Attestation: I personally attest to this time spent taking care of the patient. Discharge Plan Discharge Clinical Impression: Mouth droop, Acute on chronic renal failure Patient Disposition: Still a Patient Prescriptions: No Action azithromycin 250 mg tablet See Rx Instructions .ROUTE .COMPLEX Qty: 6 0RF Rx Instructions: For 250 mg dose pack: take 500 mg today (day 1), then 250 mg for 4 days (days 2-5) docusate sodium [Colace] 100 mg capsule 100 mg PO BID Qty: 20 0RF sennosides [senna] 8.6 mg tablet 8.6 mg PO BEDTIME Qty: 14 0RF
[2022-07-30] MEDS: 0.9 % Sodium Chloride 500 ML IV (16:54)
[2022-07-30] MEDS: Insulin Lispro 100 UNIT/ML 3 ML VIAL SUBCUT ×2 (16:55→22:04)
[2022-07-30 16:59] LABS: Glucose, Whole Blood 312 mg/dL (60-115)
[2022-07-30 17:32] LABS: COVID-19 Test Negative (Negative); IDNOW Serial# 16C4AD1C
--- NOTE | 2022-07-30 17:39 | PM.IMHP ---
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 patient lives at home with son who noted worsening left facial droop and slurred speech. ems found glucose>600. patient reports being back to baseline. in ED cth showed known left putamen cva, ayesha with creatinine of 3.08, up from previous of 2.43. glucose of 405 withough anion gap. Review of Systems Review of Systems: Yes all other systems are reviewed and are negative [facility] Medical History (Updated 07/30/22 @ 17:51 by Tyler Meneses MD) CAD (coronary artery disease) CVA (cerebral vascular accident) Diabetes mellitus Social History (Updated 07/30/22 @ 17:51 by Tyler Meneses MD) Alcohol intake: former Smoked in Last 30 Days: No Use of substances other than those prescribed or required for medical reasons: No Advance Directives: No Advance Directives Information Provided: Yes Meds Allergies Allergy/AdvReac Type Severity Reaction Status Date / Time drospirenone [Vestura (28)] Allergy Unknown Itching Verified 07/30/22 13:03 ethinyl estradiol Allergy Unknown Itching Verified 07/30/22 13:03 [Vestura (28)] lisinopril [From ZESTRIL] Allergy Unknown THROAT Verified 07/30/22 13:03 ITCHING Active Medications: Current Medications Sodium Chloride (Ns) 500 mls @ 500 mls/hr IV .Q1H BRYSON Stop: 07/30/22 17:44 Last Admin: 07/30/22 16:54 Dose: 500 mls/hr Pharmacy Consult (Consult Rx Perform Med Rec) 1 each MISCELLANE ONCE PRN PRN Reason: Consult order Physical Exam Vital Signs and Narrative: Vital Signs: Last Vital Signs Temp 98.2 F 07/30/22 13:04 Pulse 84 07/30/22 16:00 Resp 18 07/30/22 16:00 BP 196/91 H 07/30/22 15:43 Pulse Ox 96 07/30/22 16:00 O2 Del Method 07/30/22 16:00 BMI result Body Mass Index 29.5 General: AO X 3, no acute distress Resp: CTA bilateral, no accessory muscles used CVS: S1,S2,RRR GI: soft, non tender, non distended Neuro: left facial droop Psych: appropriate affect, appropriate insight Results Labs 07/30/22 14:27 07/30/22 14:27 Labs: Laboratory Results - last 24 hr 07/30/22 07/30/22 07/30/22 13:05 14:27 14:27 MCV 89.4 MCH 29.2 MCHC 32.7 RDW 14.1 Plt Count 200 MPV 11.6 Immature Gran % (Auto) 0.7 H Neut % (Auto) 64.4 Lymph % (Auto) 27.0 [place] % (Auto) 5.5 Eos % (Auto) 2.0 Baso % (Auto) 0.4 Lymph # (Auto) 2.5 [place] # (Auto) 0.5 Eos # (Auto) 0.2 Baso # (Auto) 0.0 Abs Immat Gran (auto) 0.06 H Absolute Neuts (auto) 5.9 Absolute Nucleated RBC 0.000 Nucleated RBC % (auto) 0.0 Anion Gap 11 L Estim Creat Clear Calc 14.4 Estimated GFR 15 POC Glucose 405 H* Random Glucose 357 H* Calcium 8.4 D COVID-19 (BRODERICK) COVID-19 Clin Com 07/30/22 07/30/22 16:53 17:01 MCV MCH MCHC RDW Plt Count MPV Immature Gran % (Auto) Neut % (Auto) Lymph % (Auto) [place] % (Auto) Eos % (Auto) Baso % (Auto) Lymph # (Auto) [place] # (Auto) Eos # (Auto) Baso # (Auto) Abs Immat Gran (auto) Absolute Neuts (auto) Absolute Nucleated RBC Nucleated RBC % (auto) Anion Gap Estim Creat Clear Calc Estimated GFR POC Glucose 312 H Random Glucose Calcium COVID-19 (BRODERICK) Negative COVID-19 Clin Com See Note Imaging Radiologist's Impressions: Impressions Head CT 07/30/22 16:33 IMPRESSION: Left basal ganglia infarct is of indeterminate age, but was not seen on the most recent study from 03/19/2022. No other significant abnormality. Chest X-Ray 07/30/22 16:49 IMPRESSION: 1. Questionable new focal airspace opacities in the right mid lung that could represent an early infiltrate. Recommend a follow-up examination after treatment to ensure resolution. 2. Chronic asymmetric elevation of the left hemidiaphragm with left basilar subsegmental atelectasis. 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 Quality Stroke Does the patient have a stroke diagnosis?: No VTE Prior VTE?: No VTE Risk Level:: Medical - moderate - high VTE Device Contraindication: Treatment Not Indicated VTE Drug Contraindication: N/A - Med Ordered
--- NOTE | 2022-07-30 18:43 | PHA.MEDREC ---
Pharmacy Consult ? Medication Reconciliation Pharmacy has completed the medication reconciliation. Spoke to pt's son Logan
[2022-07-30 19:43] LABS: Troponin-I High Sensitivity 29.6 ng/L (<3.5-17.0)
--- NOTE | 2022-07-30 20:33 | PC.NURSE ---
pillo texted nurse Srinivasan from [facility] requested call back.
[2022-07-30 21:44] LABS: Glucose, Whole Blood 262 mg/dL (60-115)
[2022-07-30] MEDS: Atorvastatin Calcium 80 MG TABLET PO (22:04)
[2022-07-30] MEDS: Heparin Sodium,Porcine 5,000 UNIT/ML VIAL 5000 UNIT SUBCUT (22:04)
[2022-07-30] MEDS: Insulin Glargine,Hum.rec.anlog 100 UNIT/ML 10 ML VIAL 15 UNIT SUBCUT (22:04)
[2022-07-30] MEDS: carvediloL 12.5 MG TABLET PO (22:04)
[2022-07-30] MEDS: 0.9 % Sodium Chloride 1,000 ML 75 ML IVCONT (22:08)
[2022-07-30] MEDS: Labetalol HCL 100 MG/20 ML VIAL 10 MG IVPUSH (23:18)
[2022-07-30] MEDS: Melatonin 3 MG TABLET 6 MG PO (23:37)
[2022-07-31] MEDS: Heparin Sodium,Porcine 5,000 UNIT/ML VIAL 5000 UNIT SUBCUT ×2 (02:39→09:00)
[2022-07-31 04:00] VITALS: BP 129/64; PULSE 66; RESP 15; TEMP 36.6; O2SAT 98
[2022-07-31 07:42] LABS: Hematocrit 32.4 % (37.0-47.0); Hemoglobin 10.4 g/dl (12.0-16.0); Mean Corpuscular HGB Conc 32.1 g/dl (31.0-35.0); Mean Corpuscular Hemoglobin 28.9 pg (27.0-33.0); Mean Platelet Volume 11.4 fL (9.4-12.3); Platelet Count 222 X10*3/uL (160-400); Red Cell Distribution Width 14.1 % (11.0-16.0); White Blood Count 11.5 X10*3/uL (4.8-10.8)
[2022-07-31 07:51] VITALS: BP 154/76; PULSE 80; RESP 20; TEMP 36.4; O2SAT 99
[2022-07-31 07:52] LABS: Anion Gap 11 (12-20); Blood Urea Nitrogen 70 mg/dL (9-16); Calcium 8.5 mg/dL (8.4-10.2); Carbon Dioxide 22 mmol/L (22-29); Chloride 113 mmol/L (96-108); Creatinine Clr Calc Pharmacy 15.3; Estimated Glomerular Filt Rate 16; Glucose Fasting 140 mg/dL (60-99); Potassium 4.6 mmol/L (3.3-5.1); Sodium 141 mmol/L (135-145)
[2022-07-31 07:57] LABS: Glucose, Whole Blood 141 mg/dL (60-115)
[2022-07-31] MEDS: Clopidogrel Bisulfate 75 MG TABLET PO (09:00)
[2022-07-31] MEDS: Multivitamin TABLET 1 TAB PO (09:00)
[2022-07-31] MEDS: carvediloL 12.5 MG TABLET PO (09:00)
[2022-07-31] MEDS: Isosorbide Mononitrate 30 MG TAB.ER.24H PO (09:00)
[2022-07-31] MEDS: Aspirin Enteric Coated 81 MG TABLET.DR PO (09:00)
[2022-07-31] MEDS: Sodium Bicarbonate 650 MG TABLET PO (09:00)
--- NOTE | 2022-07-31 10:37 | P.CNNE_ITS ---
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 patient lives at home with son who noted worsening left facial droop and slurred speech. She was not sure what was going on or which side was affected and indicated to her right side. There was no he adache ear pain cold or flu-like illness. Review of Systems Review of Systems: No recent cold or flu-like illness PMFSH Past Medical History Medical History (Updated 07/31/22 @ 10:40 by Jessica Keys MD) CAD (coronary artery disease) CVA (cerebral vascular accident) Diabetes mellitus Social History Social History (Updated 07/30/22 @ 17:51 by Tyler Meneses MD) Household Members: Spouse and Children Household Members Other:: and son Housing: House Do you presently have visiting nurse or other home services: Yes Alcohol intake: former Patient Tobacco Use Status: Never used Tobacco Meds Allergies Allergy/AdvReac Type Severity Reaction Status Date / Time drospirenone [Vestura (28)] Allergy Unknown Itching Verified 07/30/22 13:03 ethinyl estradiol Allergy Unknown Itching Verified 07/30/22 13:03 [Vestura (28)] lisinopril [From ZESTRIL] Allergy Unknown THROAT Verified 07/30/22 13:03 ITCHING Active Medications: Current Medications Aspirin (Aspirin Enteric Coated 81 Mg Tablet.) 81 mg PO DAILY [facility] Last Admin: 07/31/22 09:00 Dose: 81 mg Atorvastatin Calcium (Atorvastatin Calcium 80 Mg Tablet) 80 mg PO BEDTIME [facility] Last Admin: 07/30/22 22:04 Dose: 80 mg Carvedilol (Carvedilol 12.5 Mg Tablet) 12.5 mg PO BID [facility]; Protocol Last Admin: 07/31/22 09:00 Dose: 12.5 mg Clopidogrel Bisulfate (Clopidogrel Bisulfate 75 Mg Tablet) 75 mg PO DAILY [facility] Last Admin: 07/31/22 09:00 Dose: 75 mg Dextrose (Dextrose 50 % 25 Gm/50 Ml Syringe) 25 gm IVPUSH Q15M PRN; Protocol PRN Reason: per Hypoglycemia Standing Ord. Glucose (Glucose Gel 15 Gm Gel..Gram.) 15 gm PO Q15M PRN; Protocol PRN Reason: per Hypoglycemia Standing Ord. Heparin Sodium (Porcine) (Heparin Sodium,Porcine 5,000 Unit/Ml Vial) 5,000 unit SUBCUT Q8H [facility] Last Admin: 07/31/22 09:00 Dose: 5,000 unit Sodium Chloride (Ns) 1,000 mls @ 75 mls/hr IVCONT .[id number] [facility] Last Admin: 07/31/22 09:15 Dose: Not Given Insulin Glargine (Insulin Glargine,Hum.Rec.Anlog 100 Unit/Ml 10 Ml Vial) 15 unit SUBCUT BEDTIME [facility] Last Admin: 07/30/22 22:04 Dose: 15 unit Insulin Human Lispro (Insulin Lispro 100 Unit/Ml 3 Ml Vial) 0 unit SUBCUT QIDACHS [facility]; Protocol Last Admin: 07/31/22 08:59 Dose: Not Given Isosorbide Mononitrate (Isosorbide Mononitrate 30 Mg Tab.Er.24h) 30 mg PO DAILY [facility]; Protocol Last Admin: 07/31/22 09:00 Dose: 30 mg Melatonin (Melatonin 3 Mg Tablet) 6 mg PO BEDTIME PRN PRN Reason: insomnia Last Admin: 07/30/22 23:37 Dose: 6 mg Multivitamins/Vitamin C (Multivitamin Tablet) 1 tab PO DAILY [facility] Last Admin: 07/31/22 09:00 Dose: 1 tab Pharmacy Consult (Consult Rx Perform Med Rec) 1 each MISCELLANE ONCE PRN PRN Reason: Consult order Sodium Bicarbonate (Sodium Bicarbonate 650 Mg Tablet) 650 mg PO BID [facility] Last Admin: 07/31/22 09:00 Dose: 650 mg Sodium Chloride (0.9 % Sodium Chloride Flush 3 Ml Syringe) 3 ml IVFLUSH QSHIFT [facility] Last Admin: 07/31/22 09:01 Dose: Not Given Home Medications Medication Instructions Recorded Confirmed Last Taken Type aspirin 81 mg tablet,delayed 81 mg PO DAILY 07/30/22 07/30/22 07/30/22 History release carvedilol 12.5 mg tablet 1 tab PO BID 07/30/22 07/30/22 07/30/22 History clopidogrel 75 mg tablet 1 tab PO DAILY 07/30/22 07/30/22 07/30/22 History insulin glargine 100 unit/mL (3 15 unit subcut BEDTIME 07/30/22 07/30/22 07/29/22 History mL) subcutaneous pen (Lantus Solostar U-100 Insulin) insulin lispro 100 unit/mL See Protocol subcut TIDAC 07/30/22 07/30/22 07/30/22 History subcutaneous pen (Humalog KwikPen (U-100) Insulin) isosorbide mononitrate 30 mg 1 tab PO DAILY 07/30/22 07/30/22 07/30/22 History tablet,extended release 24 hr multivitamin 1 tab PO DAILY 07/30/22 07/30/22 07/30/22 History polyethylene glycol 3350 17 17 g PO DAILY PRN Constipation 07/30/22 07/30/22 Unknown History gram/dose oral powder rosuvastatin 20 mg tablet 1 tab PO DAILY 07/30/22 07/30/22 07/30/22 History sodium bicarbonate 650 mg tablet 1 tab PO BID 07/30/22 07/30/22 07/30/22 History Physical Exam Vital Signs: Vital Signs: Last Vital Signs Temp 97.6 F 07/31/22 07:51 Pulse 80 07/31/22 07:51 Resp 20 07/31/22 07:51 BP 154/76 H 07/31/22 07:51 Pulse Ox 99 07/31/22 07:51 O2 Del Method 07/31/22 07:51 BMI result Body Mass Index 29.2 Neuro: Other: She is alert and awake obese woman in no acute distress. Spontaneity and fluency of speech are intact. Comprehension is intact. Affect is normal. Pupils are about 3-4 mm round reactive to light. Extraocular muscles are intac t. Visual castelan are full to confrontation. There was mild right-sided central type facial weakness. There is no pronator drift. [id number] testing is normal. Deep tendon reflexes are absent. Results Labs 07/31/22 06:54 07/31/22 06:54 Labs: Short CBC 07/30/22 07/31/22 Range/Units 14:27 06:54 WBC 9.1 11.5 H (4.8-10.8) X10*3/uL Hgb 9.6 L 10.4 L (12.0-16.0) g/dl Hct 29.4 L 32.4 L (37.0-47.0) % Plt Count 200 222 (160-400) X10*3/uL BMP 07/30/22 07/31/22 14:27 06:54 Sodium 138 141 Potassium 4.5 4.6 Chloride 110 H 113 H Carbon Dioxide 22 22 BUN 85 H 70 H Creatinine 3.08 H 2.88 H Calcium 8.4 [address] revealed a left basal ganglia area lacunar but no acute lesion. Assessment and Plan (1) Cerebral microvascular disease: Status: Acute 72 years old woman with morbid obesity, uncontrolled diabetes with significant hyperglycemia, uncontrolled hypertension presented with facial asymmetry. On examination she has mild central right-sided weakness, which corresponded to left chronic ischemic infarction she might have another vascular event or may not but facial asymmetry could also get worse or reappear due to hyperglycemia. Mainstay of management is control of blood sugar and high blood pressure more than anti-platelet agents. She also has significant renal insufficiency and I would advise discontinuing aspirin and continuing clopidogrel and taking care of rest of the vascular risk factors. (2) Uncontrolled diabetes mellitus with hyperglycemia: Status: Acute (3) Uncontrolled hypertension: Status: Acute Time Spent With Patient Time: Total time managing care of this patient today ____ minutes. Procedures Date of Service Date of Service: 07/31/22
[2022-07-31 10:53] LABS: Appearance Urine Clear; Color Urine Yellow; Glucose Urine UA 500 mg/dL (Negative); Leukocyte Esterase Urine Negative (Negative); Nitrite Urine Negative (Negative); PH 6.5 (5.0-9.0); Specific Gravity - Urine 1.015 (1.005-1.025); UMIC TRIGGER UACC YES; Urine Blood Trace (Negative); Urine Ketones Negative (Negative); Urine Protein 300 (3+) mg/dL (Neg-Trace)
[2022-07-31 10:59] LABS: Bacteria Urine None Seen (None Seen); Hyaline Casts Urine 0-2 /LPF (0-2); RBC Urine 0-2 /HPF (0-2); Squamous Epithelial Cell Urine 0-2 /HPF (0-2); WBC Urine 0-5 /HPF (0-5)
[2022-07-31 11:25] LABS: Glucose, Whole Blood 272 mg/dL (60-115)
[2022-07-31 12:00] VITALS: BP 151/69; PULSE 83; RESP 20; TEMP 36.1; O2SAT 98
[2022-07-31] MEDS: Insulin Lispro 100 UNIT/ML 3 ML VIAL SUBCUT (12:13)
--- NOTE | 2022-07-31 12:54 | PM.DS ---
DS: Providers Provider Date of Service: 07/31/22 Date of admission: 07/30/22 17:55 Primary care physician: Marilu Quinteros MD Consults: 07/30/22 17:55 Consult to Neurology Routine Consulting Provider: [facility] Reason for consultation: left facial droop DS: Diagnosis Discharge Diagnosis (1) Cerebral microvascular disease: Status: Acute (2) Uncontrolled diabetes mellitus with hyperglycemia: Status: Acute (3) Uncontrolled hypertension: Status: Acute DS: Summary Hospital Course Hospital Course: from initial hpi: Chief Complaint: hyperglycemia 72 y/o F with history of CAD s/p FABIANO, CKD, COPD, DM, HTN, HLD, NSTEMI, R saravia radiata stroke due to R carotid stenosis (Mar 2022) s/p R CEA on DAPT, hx of recrudescence, and recent diagnosis of L putamen infarct in Jun 19 presented with left facial droop, hyperglycemia. patient lives at home with son who noted worsening left facial droop and slurred speech. ems found glucose>600. patient reports being back to baseline. in ED cth showed known left putamen cva, ayesha with creatinine of 3.08, up from previous of 2.43. glucose of 405 withough anion gap. 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 Seen by neurology recommended discontinue aspirin and continue Plavix, containing statin and better blood pressure and glucose control. Patient's renal function returned to baseline. The coronary disease she will continue Plavix statin. Hypertension she will continue Coreg and Imdur. For diabetes she was continued on insulin. Patient's back to baseline and will be discharged home. Time Spent with Patient Time attestation: Total time managing care of this patient today ____ minutes. Discharge coordination time: Greater than 30 minutes Quality: Safe Use of Opioids Does Pt have an Active Cancer Diagnosis on the Problem List?: No Quality: Stroke Does the patient have a stroke diagnosis?: No Physical Exam Vital Signs: Vital Signs: Last Vital Signs Temp 97.0 F 07/31/22 12:00 Pulse 83 07/31/22 12:00 Resp 20 07/31/22 12:00 BP 151/69 H 07/31/22 12:00 Pulse Ox 98 07/31/22 12:00 O2 Del Method 07/31/22 12:00 BMI result Body Mass Index 29.2 Neuro: Other: She is alert and awake obese woman in no acute distress. Spontaneity and fluency of speech are intact. Comprehension is intact. Affect is normal. Pupils are about 3-4 mm round reactive to light. Extraocular muscles are intact. Visual castelan are full to confrontation. There was mild right-sided central type facial weakness. There is no pronator drift. Viczca-so-cujn testing is normal. Deep tendon reflexes are absent. DS: Data Data Completed and Pending Labs on day of discharge: Laboratory Results - last 24 hr 07/30/22 07/30/22 07/30/22 13:05 14:27 14:27 WBC 9.1 RBC 3.29 L Hgb 9.6 L Hct 29.4 L MCV 89.4 MCH 29.2 MCHC 32.7 RDW 14.1 Plt Count 200 MPV 11.6 Immature Gran % (Auto) 0.7 H Neut % (Auto) 64.4 Lymph % (Auto) 27.0 [place] % (Auto) 5.5 Eos % (Auto) 2.0 Baso % (Auto) 0.4 Lymph # (Auto) 2.5 [place] # (Auto) 0.5 Eos # (Auto) 0.2 Baso # (Auto) 0.0 Abs Immat Gran (auto) 0.06 H Absolute Neuts (auto) 5.9 Absolute Nucleated RBC 0.000 Nucleated RBC % (auto) 0.0 Sodium 138 Potassium 4.5 Chloride 110 H Carbon Dioxide 22 Anion Gap 11 L BUN 85 H Creatinine 3.08 H Estim Creat Clear Calc 14.4 Estimated GFR 15 POC Glucose 405 H* Random Glucose 357 H* Fasting Glucose Calcium 8.4 D Troponin I High Sens Urine Color Urine Appearance Urine pH Ur Specific [place] Urine Protein Urine Glucose (UA) Urine Ketones Urine Blood Urine Nitrite Ur Leukocyte Esterase Urine RBC Urine WBC Ur Squamous Epith Cells Urine Bacteria Hyaline Casts COVID-19 ([facility]) COVID-19 Clin Com 07/30/22 07/30/22 07/30/22 16:53 17:01 19:06 WBC RBC Hgb Hct MCV MCH MCHC RDW Plt Count MPV Immature Gran % (Auto) Neut % (Auto) Lymph % (Auto) [place] % (Auto) Eos % (Auto) Baso % (Auto) Lymph # (Auto) [place] # (Auto) Eos # (Auto) Baso # (Auto) Abs Immat Gran (auto) Absolute Neuts (auto) Absolute Nucleated RBC Nucleated RBC % (auto) Sodium Potassium Chloride Carbon Dioxide Anion Gap BUN Creatinine Estim Creat Clear Calc Estimated GFR POC Glucose 312 H Random Glucose Fasting Glucose Calcium Troponin I High Sens 29.6 H Urine Color Urine Appearance Urine pH Ur Specific [place] Urine Protein Urine Glucose (UA) Urine Ketones Urine Blood Urine Nitrite Ur Leukocyte Esterase Urine RBC Urine WBC Ur Squamous Epith Cells Urine Bacteria Hyaline Casts COVID-19 ([facility]) Negative COVID-19 Clin Com See Note 07/30/22 07/31/22 07/31/22 21:35 06:54 06:54 WBC 11.5 H RBC 3.60 L Hgb 10.4 L Hct 32.4 L MCV 90.0 MCH 28.9 MCHC 32.1 RDW 14.1 Plt Count 222 MPV 11.4 Immature Gran % (Auto) Neut % (Auto) Lymph % (Auto) [place] % (Auto) Eos % (Auto) Baso % (Auto) Lymph # (Auto) [place] # (Auto) Eos # (Auto) Baso # (Auto) Abs Immat Gran (auto) Absolute Neuts (auto) Absolute Nucleated RBC 0.000 Nucleated RBC % (auto) 0.0 Sodium 141 Potassium 4.6 Chloride 113 H Carbon Dioxide 22 Anion Gap 11 L BUN 70 H Creatinine 2.88 H Estim Creat Clear Calc 15.3 Estimated GFR 16 POC Glucose 262 H Random Glucose Fasting Glucose 140 H Calcium 8.5 Troponin I High Sens Urine Color Urine Appearance Urine pH Ur Specific [place] Urine Protein Urine Glucose (UA) Urine Ketones Urine Blood Urine Nitrite Ur Leukocyte Esterase Urine RBC Urine WBC Ur Squamous Epith Cells Urine Bacteria Hyaline Casts COVID-19 ([facility]) COVID-19 Clin Com 07/31/22 07/31/22 07/31/22 07:49 09:00 11:20 WBC RBC Hgb Hct MCV MCH MCHC RDW Plt Count MPV Immature Gran % (Auto) Neut % (Auto) Lymph % (Auto) [place] % (Auto) Eos % (Auto) Baso % (Auto) Lymph # (Auto) [place] # (Auto) Eos # (Auto) Baso # (Auto) Abs Immat Gran (auto) Absolute Neuts (auto) Absolute Nucleated RBC Nucleated RBC % (auto) Sodium Potassium Chloride Carbon Dioxide Anion Gap BUN Creatinine Estim Creat Clear Calc Estimated GFR POC Glucose 141 H 272 H Random Glucose Fasting Glucose Calcium Troponin I High Sens Urine Color Yellow Urine Appearance Clear Urine pH 6.5 Ur Specific [place] 1.015 Urine Protein 300 (3+) H Urine Glucose (UA) 500 H Urine Ketones Negative Urine Blood Trace H Urine Nitrite Negative Ur Leukocyte Esterase Negative Urine RBC 0-2 Urine WBC 0-5 Ur Squamous Epith Cells 0-2 Urine Bacteria None Seen Hyaline Casts 0-2 COVID-19 ([facility]) COVID-19 Clin Com Discharge Plan Discharge Anticipated Discharge Date/Time: 07/31/22 12:47 Patient Disposition: Home, Self-Care Discharge Diagnosis: exacerbation of recent cva due to hyperglycemia and hypertension Referrals: Marilu Quinteros MD [Primary Care Provider] - 1 Week Discharge Medications: Continued multivitamin Tablet 1 tab PO DAILY carvedilol 12.5 mg tablet 1 tab PO BID isosorbide mononitrate 30 mg tablet extended release 24 hr 1 tab PO DAILY clopidogrel 75 mg tablet 1 tab PO DAILY sodium bicarbonate 650 mg tablet 1 tab PO BID polyethylene glycol 3350 17 gram/dose powder 17 g PO DAILY PRN (Reason: Constipation) insulin lispro [Humalog KwikPen Insulin] 100 unit/mL insulin pen See Protocol subcut TIDA Protocol: Insulin Correction Scale Less than or equal to 110 ---- Give (units): 0 111 to 150 Give (units): 0 151 to 200 Give (units): 2 201 to 250 Give (units): 4 251 to 300 Give (units): 6 301 to 350 Give (units): 8 Greater than 350 Give (units): 10 Call if Blood Glucose > : 350 rosuvastatin 20 mg tablet 1 tab PO DAILY insulin glargine [Lantus Solostar U-100 Insulin] 100 unit/mL (3 mL) insulin pen 15 unit subcut BEDTIME Discontinued aspirin 81 mg Tablet,Delayed Release (Dr/Ec) 81 mg PO DAILY Discharge Orders: Discharge Order (Routine); Ordered 07/31/22 Ordered By: Tyler Meneses Diet: Advance to usual diet Activity on Discharge: As tolerated Stand Alone Forms: Patient Portal Discharge page Care Plan Goals: recovery Health Concerns: htn, ckd, dm Plan of Treatment: bp and diabetes control Assessment: see above
--- NOTE | 2022-07-31 13:08 | MHC.CM.PN ---
Addendum entered by Mony Hardwick 07/31/22 16:17: Patient discharged today with resumption of [facility]. Family will provide transportation Original Note: IMM 07/31/22 Female 72 DX AYESHA She lives w spouse and adult son. She states that she is independent with ADLs. She uses a walker. She is active with [facility]. A referral has been sent to resume services at discharge. HCP, copy requested. VAX X1. Dp resume [facility] family will provide transport home.
[2022-07-31] MEDS: 0.9 % Sodium Chloride 1,000 ML 75 ML IVCONT (13:44)
[2022-07-31 15:22] VITALS: PULSE 93; RESP 16; TEMP 36.1; O2SAT 96
== END 2022-07-31 16:41 | disposition home health service (06) | DRG 638 ==
LOC: HO.ED 17:24 → HO.EDOVER 18:13 → HO.IMC 19:00
PROVIDERS: Admitting Provider Internal Medicine; Emergency Provider Student in an Organized Health Care Education/Training Program; PCP Internal Medicine; Visit Provider Internal Medicine
DX: E11.65 Type 2 diabetes mellitus with hyperglycemia (principal); N17.9 Acute kidney failure, unspecified; N18.4 Chronic kidney disease, stage 4 (severe); E11.22 Type 2 diabetes mellitus with diabetic chronic kidney disease; I12.9 Hypertensive chronic kidney disease with stage 1 through stage 4 chronic kidney disease, or unspecified chronic kidney disease; I25.10 Atherosclerotic heart disease of native coronary artery without angina pectoris; I67.9 Cerebrovascular disease, unspecified; J44.9 Chronic obstructive pulmonary disease, unspecified; E78.5 Hyperlipidemia, unspecified; Z20.822 Contact with and (suspected) exposure to COVID-19; I25.2 Old myocardial infarction; Z91.14 Patient's other noncompliance with medication regimen; Z95.5 Presence of coronary angioplasty implant and graft; Z88.8 Allergy status to other drugs, medicaments and biological substances; Z79.4 Long term (current) use of insulin; Z79.02 Long term (current) use of antithrombotics/antiplatelets; Z79.899 Other long term (current) drug therapy
CPT/HCPCS: 36415; 70450; 71045; 80048; 81001; 82947; 84484; 85025; 85027; 87635; 93005; 99285; J1643

== ENCOUNTER 2022-09-20 12:56 | Emergency (ER) | payer MEDICARE, SELFPAY ==
--- NOTE | ~2022-09-20 | CT_ITS ---
EXAMINATION: CT HEAD WITHOUT CONTRAST CT CERVICAL SPINE WITHOUT CONTRAST CLINICAL INFORMATION: Fall with altered mental status, neck pain COMPARISON: CT head from 07/30/2022 TECHNIQUE: Contiguous axial imaging was performed from the skull base to vertex without intravenous administration of contrast. In addition, helical noncontrast CT imaging was acquired through the cervical spine and source images were reviewed along with axial reconstructions and sagittal and coronal MPRs. All CT exams at this location are performed using dose optimization techniques as appropriate to a performed exam including at least one of the following: * Automated exposure control * Adjustment of the mA and/or kV according to patient size (this includes techniques or standardized protocols for targeted exams where dose is matched to indication / reason for exam; i/e/ extremities or head) * Use of iterative reconstructive technique DLP: 1167 mGy-cm FINDINGS: HEAD: No intracranial mass, hemorrhage, or midline shift is visualized. Old lacunar infarct is seen within the left basal ganglia which is unchanged. The ventricles and sulci are age-appropriate. No extra-axial collections are identified. The paranasal sinuses are well aerated. CERVICAL SPINE: Significant motion artifact is present. There is no definite evidence of acute cervical spine fracture. Vertebral body height and alignment is well maintained. Surgical clips seen in the soft tissues of the right neck. Thyroid gland is diffusely enlarged. No soft tissue edema or fluid collections Degenerative changes with disc space narrowing and osteophyte formation is seen throughout the cervical spine from C3 through T1. Posterior facet joint arthropathy is seen within the cervical spine. Limited assessment of the lung apices is unremarkable. CT/CT cervical spine wo IV con IMPRESSION: 1. No acute intracranial pathology. Stable old lacunar infarct in the left basal ganglia 2. Significant motion artifact on the CT of the cervical spine. No definite CT evidence of acute cervical spine fracture or traumatic subluxation. Diffuse degenerative changes seen
[2022-09-20 13:05] VITALS: BP 108/69; PULSE 83; O2SAT 97
--- NOTE | 2022-09-20 13:12 | ECG_ITS ---
Test Reason : FALL Blood Pressure : / mmHG Vent. Rate : 079 BPM Atrial Rate : 079 BPM P-R Int : 158 ms QRS Dur : 096 ms QT Int : 406 ms P-R-T Axes : 019 018 157 degrees QTc Int : 465 ms Normal sinus rhythm Left ventricular hypertrophy with repolarization abnormality ( [place] product ) Abnormal ECG When compared with ECG of 30-JUL-2022 17:05, No significant change was found Referred By: Nawaf Trevizo Electronically Signed By:JOHN AVALOS MD
--- NOTE | 2022-09-20 13:13 | ED_ITS ---
HPI - Fall General Chief Complaint: Fall Stated Complaint: FALL FROM SIT,SLIGHT AMS BEFORE FALL,NO INJURY Time Seen by Provider: 09/20/22 13:10 Source: patient Mode of arrival: EMS Limitations: no limitations History of Present Illness HPI Narrative: Fall, the patient is a 72 years old of female with multiple medical problem which include CAD, COPD, right saravia radiata stroke in 2021 and left foot time infarct on a in June 19 presented emergency department after a fall. She states that she TRIPPED. She is brought here by ambulance the fall was about 09:00 o'clock in the morning.She is on plavix. complaint: fall Onset (ago): hour(s) (4) Fall from: chair and other (getting up) Fall witnessed: no Place fall occurred: home Loss of consciousness: none Symptoms prior to fall: none Context: tripped/slipped Associated symptoms (after fall): denies Related Data Home Medications Medication Instructions Recorded Confirmed carvedilol 12.5 mg tablet 1 tab PO BID 07/30/22 07/30/22 clopidogrel 75 mg tablet 1 tab PO DAILY 07/30/22 07/30/22 insulin glargine 100 unit/mL (3 15 unit subcut BEDTIME 07/30/22 07/30/22 mL) subcutaneous pen (Lantus Solostar U-100 Insulin) insulin lispro 100 unit/mL See Protocol subcut TIDAC 07/30/22 07/30/22 subcutaneous pen (Humalog KwikPen (U-100) Insulin) isosorbide mononitrate 30 mg 1 tab PO DAILY 07/30/22 07/30/22 tablet,extended release 24 hr multivitamin 1 tab PO DAILY 07/30/22 07/30/22 polyethylene glycol 3350 17 17 g PO DAILY PRN Constipation 07/30/22 07/30/22 gram/dose oral powder rosuvastatin 20 mg tablet 1 tab PO DAILY 07/30/22 07/30/22 sodium bicarbonate 650 mg tablet 1 tab PO BID 07/30/22 07/30/22 Allergies Allergy/AdvReac Type Severity Reaction Status Date / Time drospirenone [Vestura (28)] Allergy Unknown Itching Verified 09/20/22 13:36 ethinyl estradiol Allergy Unknown Itching Verified 09/20/22 13:36 [Vestura (28)] lisinopril [From ZESTRIL] Allergy Unknown THROAT Verified 09/20/22 13:36 ITCHING Review of Systems Constitutional: Constitutional: Reports no additional constitutional complaints ENT: Reports system reviewed and no additional complaints, except as documented Respiratory: Respiratory: Reports no additional respiratory complaints Musculoskeletal: Musculoskeletal: Reports no additional musculoskeletal complaints [facility] Past Medical History Medical History CAD (coronary artery disease) CVA (cerebral vascular accident) Diabetes mellitus Social History Social History Household Members: Spouse and Children Household Members Other:: and son Housing: House Do you presently have visiting nurse or other home services: Yes Alcohol intake: former Patient Tobacco Use Status: Never used Tobacco Smoked in Last 30 Days: No Use of substances other than those prescribed or required for medical reasons: No Advance Directives: No service: No Current occupational status: retired Physical Exam Vital Signs: Vital Signs: Last Vital Signs Temp 98.2 F 09/20/22 15:38 Pulse 84 09/20/22 15:38 Resp 16 09/20/22 15:38 BP 134/62 09/20/22 15:38 Pulse Ox 94 09/20/22 15:38 O2 Del Method Room Air 09/20/22 15:38 BMI result Body Mass Index 29.7 Const: General: cooperative Nutritional Appearance: average body habitus Limitations: no limitations HEENT: Head: Yes normal to inspection General nose exam: Normal external nose present Face and sinus: Yes normal facial exam Mouth: Normal oral and palatal mucosa present Throat: Yes posterior oropharynx normal Neck: Neck: Yes normal visual inspection, Yes full ROM and Yes no lymphadenopathy Thyroid: Thyroid normal Carotids: normal carotid upstroke Resp: Effort & Inspection: normal respiratory effort and able to speak in complete sentences Auscultation: clear to auscultation bilaterally Cardio: Jugular venous distension: no JVD Rate: regular rate Rhythm: regular rhythm GI: Inspection: Yes normal to inspection Palpation (GI): Soft to palpation, not firm, nontender and no guarding Auscultation: normal bowel sounds Skin: General skin exam: no rashes or lesions noted, elasticity normal, turgor normal and atrophy Course Reevaluation(s) Reevaluation #1: At this time she is ambulating in the hallway with a walker with steady gait, she now tells me that she tripped and fell. She has no chest pain the troponin is 52 but no diagnostic in the setting of chronic renal insufficiency in the absence of chest pain. Head CT and C-spine negative. Reevaluation #2: WE ARE WAITING FOR THE REPEAT TROPONIN ASSUMING THAT THE THAT IS FLAT I THINK IT IS REASONABLE DISCHARGE THE PATIENT HOME SHE IS AMBULATING WELL WITHOUT ANY ASSISTANCE AT THIS TIME SHE CLEARLY TELLS ME THAT SHE TRIPPED Time: 16:55 Medications Administered Discontinued Medications Generic Name Dose Route Start Last Admin Trade Name Freq PRN Reason Stop Dose Admin Ondansetron HCl 4 mg 09/20/22 14:13 09/20/22 14:26 Ondansetron Hcl 4 Mg/2 Ml Vial IVPUSH 09/20/22 14:14 4 mg ONCE ONE Administration Medical Decision Making Medical Decision Making [facility] Narrative: Patient presented with a fall non syncopal will get a CT EKG labs and reassess Differential Diagnosis Differential Diagnoses: The differential diagnosis associated with the presentation includes Subdural hematoma/epidural hematoma/arrhythmia Admission/Observation Consideration of admission/observation: Escalation of care including admission/observation considered I consider admission for oBS however mechanical fall tripped,ct negative Lab Data [facility] Lab Attestation statement: I reviewed the patient's lab results. 09/20/22 13:58 09/20/22 13:58 Labs: Lab Results 09/20/22 09/20/22 09/20/22 Range/Units 13:58 13:58 13:58 WBC 12.2 H (4.8-10.8) X10*3/uL RBC 3.40 L (4.20-5.50) X10*6/uL Hgb 9.5 L (12.0-16.0) g/dl Hct 29.7 L (37.0-47.0) % MCV 87.4 (80.0-98.0) fL MCH 27.9 (27.0-33.0) pg MCHC 32.0 (31.0-35.0) g/dl RDW 14.5 (11.0-16.0) % Plt Count 189 (160-400) X10*3/uL MPV 11.1 (9.4-12.3) fL Immature Gran % (Auto) 0.6 H (0.0-0.4) % Neut % (Auto) 74.3 H (45-73) % Lymph % (Auto) 18.4 L (20-40) % [place] % (Auto) 4.8 (2-11) % Eos % (Auto) 1.7 (0-4) % Baso % (Auto) 0.2 (0-2) % Lymph # (Auto) 2.3 (1.2-4.9) X10*3/uL [place] # (Auto) 0.6 (0.1-1.2) X10*3/uL Eos # (Auto) 0.2 (0.0-0.4) X10*3/uL Baso # (Auto) 0.0 (0.0-0.2) X10*3/uL Abs Immat Gran (auto) 0.07 H (0.00-0.03) X10*3/uL Absolute Neuts (auto) 9.1 H (2.0-8.3) x10*3/uL Absolute Nucleated RBC 0.000 (0.0-0.012) X10*3/uL Nucleated RBC % (auto) 0.0 (0.0-0.2) /100WBC PT (10.0-13.1) SEC INR (0.9-1.1) Sodium 142 (135-145) mmol/L Potassium 4.2 (3.3-5.1) mmol/L Chloride 111 H (96-108) mmol/L Carbon Dioxide 20 L (22-29) mmol/L Anion Gap 15 (12-20) BUN 51 H (9-16) mg/dL Creatinine 3.15 H (0.5-1.4) mg/dL Estim Creat Clear Calc 14.7 Estimated GFR 14 Random Glucose 130 H (60-115) mg/dL Calcium 8.0 L (8.4-10.2) mg/dL Total Bilirubin 0.2 (0.0-1.0) mg/dL AST 12 (5-31) U/L ALT 12 (0-31) U/L Alkaline Phosphatase 67 (39-117) U/L Troponin I High Sens 52.1 H* D (<3.5-17.0) ng/L Total Protein 4.6 L (6.5-8.0) g/dL Albumin 2.4 L (3.5-5.0) g/dL 09/20/22 09/20/22 Range/Units 13:58 16:43 WBC (4.8-10.8) X10*3/uL RBC (4.20-5.50) X10*6/uL Hgb (12.0-16.0) g/dl Hct (37.0-47.0) % MCV (80.0-98.0) fL MCH (27.0-33.0) pg MCHC (31.0-35.0) g/dl RDW (11.0-16.0) % Plt Count (160-400) X10*3/uL MPV (9.4-12.3) fL Immature Gran % (Auto) (0.0-0.4) % Neut % (Auto) (45-73) % Lymph % (Auto) (20-40) % [place] % (Auto) (2-11) % Eos % (Auto) (0-4) % Baso % (Auto) (0-2) % Lymph # (Auto) (1.2-4.9) X10*3/uL [place] # (Auto) (0.1-1.2) X10*3/uL Eos # (Auto) (0.0-0.4) X10*3/uL Baso # (Auto) (0.0-0.2) X10*3/uL Abs Immat Gran (auto) (0.00-0.03) X10*3/uL Absolute Neuts (auto) (2.0-8.3) x10*3/uL Absolute Nucleated RBC (0.0-0.012) X10*3/uL Nucleated RBC % (auto) (0.0-0.2) /100WBC PT 9.6 L (10.0-13.1) SEC INR 0.8 L (0.9-1.1) Sodium (135-145) mmol/L Potassium (3.3-5.1) mmol/L Chloride (96-108) mmol/L Carbon Dioxide (22-29) mmol/L Anion Gap (12-20) BUN (9-16) mg/dL Creatinine (0.5-1.4) mg/dL Estim Creat Clear Calc Estimated GFR Random Glucose (60-115) mg/dL Calcium (8.4-10.2) mg/dL Total Bilirubin (0.0-1.0) mg/dL AST (5-31) U/L ALT (0-31) U/L Alkaline Phosphatase (39-117) U/L Troponin I High Sens 46.1 H (<3.5-17.0) ng/L Total Protein (6.5-8.0) g/dL Albumin (3.5-5.0) g/dL Independent Interpretation I performed an independent interpretation of an: EKG (Normal sinus rhythm rate 79 inverted T-wave in lead 1 and L and V4 V5 unchanged) and CT Scan Interpretation: CERVICAL SPINE: Significant motion artifact is present. There is no definite evidence of acute cervical spine fracture.? Vertebral body height and alignment is well maintained.? Surgical clips seen in the soft tissues of the right neck. Thyroid gland is diffusely enlarged. No soft tissue edema or fluid collections Degenerative changes with disc space narrowing and osteophyte formation is seen throughout the cervical spine from C3 through T1. Posterior facet joint arthropathy is seen within the cervical spine. Limited assessment of the lung apices is unremarkable. CT/CT head/brain wo IV con IMPRESSION: 1. No acute intracranial pathology. Stable old lacunar infarct in the left basal ganglia 2. Significant motion artifact on the CT of the cervical spine. No definite CT evidence of acute cervical spine fracture or traumatic subluxation. Diffuse degenerative changes seen Dictated By: James Jacob MD Signed By: <Electronically signed by James Jacob MD in OV> 09/20/22 1512 Radiology Impression Radiologist Impression: CERVICAL SPINE: Significant motion artifact is present. There is no definite evidence of acute cervical spine fracture.? Vertebral body height and alignment is well maintained.? Surgical clips seen in the soft tissues of the right neck. Thyroid gland is diffusely enlarged. No soft tissue edema or fluid collections Degenerative changes with disc space narrowing and osteophyte formation is seen throughout the cervical spine from C3 through T1. Posterior facet joint arthropathy is seen within the cervical spine. Limited assessment of the lung apices is unremarkable. CT/CT head/brain wo IV con IMPRESSION: 1. No acute intracranial pathology. Stable old lacunar infarct in the left basal ganglia 2. Significant motion artifact on the CT of the cervical spine. No definite CT evidence of acute cervical spine fracture or traumatic subluxation. Diffuse degenerative changes seen Dictated By: James Jacob MD Signed By: <Electronically signed by James Jacob MD in OV> 09/20/22 1512 External Record Review External record reviewed: Inpatient record Chronic Conditions Patient?s care impacted by: Other (CRF) Discharge Plan Discharge Clinical Impression: Fall, Chronic renal disease, Elevated troponin level not due to acute coronary syndrome Patient Disposition: Home, Self-Care Instructions: Fall Prevention for Older Adults (ED), Fall Prevention (ED) Prescriptions: No Action multivitamin Tablet 1 tab PO DAILY carvedilol 12.5 mg tablet 1 tab PO BID isosorbide mononitrate 30 mg tablet extended release 24 hr 1 tab PO DAILY clopidogrel 75 mg tablet 1 tab PO DAILY sodium bicarbonate 650 mg tablet 1 tab PO BID polyethylene glycol 3350 17 gram/dose powder 17 g PO DAILY PRN (Reason: Constipation) insulin lispro [Humalog KwikPen Insulin] 100 unit/mL insulin pen See Protocol subcut TIDAC Protocol: Insulin Correction Scale Less than or equal to 110 ---- Give (units): 0 111 to 150 Give (units): 0 151 to 200 Give (units): 2 201 to 250 Give (units): 4 251 to 300 Give (units): 6 301 to 350 Give (units): 8 Greater than 350 Give (units): 10 Call MD if Blood Glucose > : 350 rosuvastatin 20 mg tablet 1 tab PO DAILY insulin glargine [Lantus Solostar U-100 Insulin] 100 unit/mL (3 mL) insulin pen 15 unit subcut BEDTIME Referrals: Marilu Quinteros MD [Primary Care Provider] - 2 days Interventions: ED Discharge Assessment Last Done: 09/20/22 17:45 Discharge Date/Time: 09/20/22 17:45
[2022-09-20 13:26] VITALS: BP 114/56; PULSE 78; RESP 16; TEMP 36.6; O2SAT 94; BMI 29.7
[2022-09-20 14:03] LABS: MANUAL DIFF FLAG NO
[2022-09-20 14:04] LABS: Basophils Percent Auto 0.2 % (0-2); Eosinophils Absolute Auto 0.2 X10*3/uL (0.0-0.4); Eosinophils Percent Auto 1.7 % (0-4); Hematocrit 29.7 % (37.0-47.0); Hemoglobin 9.5 g/dl (12.0-16.0); Imm Gran Abs Auto 0.07 X10*3/uL (0.00-0.03); Imm Gran Pct Auto 0.6 % (0.0-0.4); Lymphocytes Absolute Auto 2.3 X10*3/uL (1.2-4.9); Lymphocytes Percent Auto 18.4 % (20-40); Mean Corpuscular Hemoglobin 27.9 pg (27.0-33.0); Mean Corpuscular Volume 87.4 fL (80.0-98.0); Mean Platelet Volume 11.1 fL (9.4-12.3); Monocytes Absolute Auto 0.6 X10*3/uL (0.1-1.2); Monocytes Percent Auto 4.8 % (2-11); Neutrophils Absolute Auto 9.1 x10*3/uL (2.0-8.3); Neutrophils Percent Auto 74.3 % (45-73); Platelet Count 189 X10*3/uL (160-400); Red Cell Distribution Width 14.5 % (11.0-16.0); White Blood Count 12.2 X10*3/uL (4.8-10.8)
[2022-09-20 14:12] LABS: INTERNATIONAL NORM RATIO 0.8 (0.9-1.1); Prothrombin Time 9.6 SEC (10.0-13.1)
[2022-09-20 14:24] LABS: Alanine Aminotransferase 12 U/L (0-31); Albumin Level 2.4 g/dL (3.5-5.0); Alkaline Phosphatase 67 U/L (39-117); Anion Gap 15 (12-20); Aspartate Amino Transferase 12 U/L (5-31); Bilirubin Total 0.2 mg/dL (0.0-1.0); Blood Urea Nitrogen 51 mg/dL (9-16); Carbon Dioxide 20 mmol/L (22-29); Chloride 111 mmol/L (96-108); Creatinine Clr Calc Pharmacy 14.7; Estimated Glomerular Filt Rate 14; Glucose Random 130 mg/dL (60-115); Potassium 4.2 mmol/L (3.3-5.1); Sodium 142 mmol/L (135-145); Total Protein 4.6 g/dL (6.5-8.0)
[2022-09-20] MEDS: ondansetron HCL 4 MG/2 ML VIAL IVPUSH (14:26)
--- NOTE | 2022-09-20 14:28 | PC.NURSE ---
pt a&ox4, vss, 20G IV placed right AC, pt reporting nausea, medicated per provider order.
[2022-09-20 14:39] LABS: Troponin-I High Sensitivity 52.1 ng/L (<3.5-17.0)
[2022-09-20 15:38] VITALS: BP 134/62; PULSE 84; RESP 16; TEMP 36.8; O2SAT 94
--- NOTE | 2022-09-20 15:39 | PC.NURSE ---
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
--- NOTE | 2022-09-20 16:00 | PC.NURSE ---
patient ambulated with tech approx 130ft with wheeled walker, pt ambulated with steady gait, pt to have additional labs for troponin and will discharge.
[2022-09-20 17:10] LABS: Troponin-I High Sensitivity 46.1 ng/L (<3.5-17.0)
== END 2022-09-20 17:45 | disposition home or self-care (01) ==
PROVIDERS: Emergency Provider Emergency Medicine; PCP Internal Medicine
DX: R29.6 Repeated falls (principal); R77.8 Other specified abnormalities of plasma proteins; E11.22 Type 2 diabetes mellitus with diabetic chronic kidney disease; I12.9 Hypertensive chronic kidney disease with stage 1 through stage 4 chronic kidney disease, or unspecified chronic kidney disease; N18.9 Chronic kidney disease, unspecified; Z86.73 Personal history of transient ischemic attack (TIA), and cerebral infarction without residual deficits; Z79.4 Long term (current) use of insulin; Z79.02 Long term (current) use of antithrombotics/antiplatelets
CPT/HCPCS: 36415; 70450; 72125; 80053; 84484; 85025; 85610; 93005; 96374; 99285; J2405